=== PATIENT | female | born 1950 | race African-American/Black ===

== ENCOUNTER 2022-07-15 09:50 | Emergency (ER) | payer MEDICARE ==
[~2022-07-15] VITALS: Ht 167.6 cm; Wt 80.0 kg
[2022-07-15 10:40] LABS: BASOPHILS % 0.5 % (0.0-2.0); HEMATOCRIT. 36.2 % (36.0-48.0); HEMOGLOBIN. 12.1 g/dL (12.0-16.0); LYMPHOCYTES % 41.1 % (20.0-50.0); MEAN CORPUSCULAR HEMOGLOBIN 29.8 pg (28.0-32.0); MEAN PLATELET VOLUME 8.7 fl (7.4-10.4); MONOCYTES % 8.3 % (2.0-8.0); NEUTROPHILS % 48.1 % (40.0-76.0); PLATELET 168 x1000/uL (130-400); RED BLOOD CELL COUNT 4.07 mill/uL (4.2-5.4); RED CELL DISTRIBUTION WIDTH 15.1 % (11.6-14.6)
[2022-07-15 10:55] LABS: CHLORIDE 108 mEq/L (98-107)
[2022-07-15] MEDS ORDERED: CEFEPIME 1,000 MG in DEXTROSE 5% WATER 50 ML IV SCH (11:45)
[2022-07-15] MEDS ORDERED: VANCOMYCIN 1G PREMIX 200 ML IV SCH (11:45)
[2022-07-15] MEDS ORDERED: IOHEXOL-350 100 ML BOTTLE ONE (14:09)
[2022-07-15] MEDS ORDERED: NICARDIPINE 50 MG in SODIUM CHLORIDE 0.9% 230 ML IV PRN ×2 (15:00→17:45)
[2022-07-15] MEDS ORDERED: MORPHINE SULFATE 4 MG/ML CPJ (NOT FOR IM USE) IV ONE (15:15)
[2022-07-15 16:05] VITALS: BP 122/86
== END 2022-07-15 18:11 | disposition short-term general hospital (02) ==
LOC: ER 09:50
DX: T14.8XXA Other injury of unspecified body region, initial encounter (principal); Z20.822 Contact with and (suspected) exposure to COVID-19; I10 Essential (primary) hypertension; X58.XXXA Exposure to other specified factors, initial encounter; Y93.89 Activity, other specified; Y92.89 Other specified places as the place of occurrence of the external cause; Y99.8 Other external cause status
CPT/HCPCS: 36415; 71045; 71275; 80053; 84484; 85025; 87426; 93005; 96365; 96375; 99291; C9803; J2270; Q9967; J0692; J7060